=== PATIENT | female | born 1980 ===

== ENCOUNTER 2017-06-10 10:28 | Emergency (ER) | payer OTHER ==
[2017-06-10 10:28] VITALS: BMI 21.9
[2017-06-10 10:42] VITALS: BP 100/70; PULSE 92; RESP 20; TEMP 97.8; O2SAT 98
[2017-06-10] MEDS ORDERED: Lidocaine 2% w Epi 1:100,000 Inj IJ ONE (11:17)
--- NOTE | 2017-06-10 11:55 | C.PDOC ---
History Of Present Illness 36 yr old female presents to the ER with complaints of painful lump to the right labia for the past 2 days. Patient reports similar symptoms few months ago and was diagnosed with Bartholin cyst and had it drained in the ER. Patient denies fever, nausea, vomiting, abdominal pain, diarrhea, dysuria, incontinence , vaginal bleeding, vaginal discharge or back pain. Time Seen by Provider: 06/10/17 11:01 Chief Complaint (Nursing): Female Genitourinary History Per: Patient History/Exam Limitations: no limitations Onset/Duration Of Symptoms: Days (2) Current Symptoms Are (Timing): Still Present Past Medical History Reviewed: Historical Data, Nursing Documentation, Vital Signs Vital Signs: Last Vital Signs Temp 97.8 F 06/10/17 10:38 Pulse 92 H 06/10/17 10:38 Resp 20 06/10/17 10:38 BP 100/70 06/10/17 10:38 Pulse Ox 98 06/10/17 12:25 - Medical History PMH: Asthma Family History: States: No Known Family Hx - Social History Hx Tobacco Use: No Hx Alcohol Use: No Hx Substance Use: No - Immunization History Hx Tetanus Toxoid Vaccination: No Hx Influenza Vaccination: No Hx Pneumococcal Vaccination: No Review Of Systems Except As Marked, All Systems Reviewed And Found Negative. Constitutional: Negative for: Fever Gastrointestinal: Negative for: Nausea, Vomiting, Abdominal Pain, Diarrhea Genitourinary: Positive for: Other ((+) Painful lump to the right labia. ). Negative for: Dysuria, Incontinence, Vaginal Discharge, Vaginal Bleeding Musculoskeletal: Negative for: Back Pain Physical Exam - Physical Exam Appears: Non-toxic, No Acute Distress Skin: Warm, Dry, No Rash Head: Atraumatic, Normacephalic Eye(s): bilateral: Normal Inspection Oral Mucosa: Moist Neck: Normal ROM Cardiovascular: Rhythm Regular Respiratory: Normal Breath Sounds Gastrointestinal/Abdominal: Normal Exam, Soft, No Tenderness, No Guarding, No Rebound Pelvic: No Vaginal Bleeding, Other ((+) 3cm swollen and tender Bartholin Cyst to the right side of the labia. ) Extremity: Normal ROM, No Swelling Neurological/Psych: Oriented x3, Normal Speech, Normal Motor Gait: Steady ED Course And Treatment O2 Sat by Pulse Oximetry: 98 (on RA) Pulse Ox Interpretation: Normal - Incision & Drainage Of Abscess Anesthesia: Lidocaine 1%, With Epi Prep Used: Sterile Water, Betadine Procedure: Incised W/Scalpel Blade#:, Drained Pus, Irrigated Cavity W/Saline, Probed To Break Up Loculations (Word catheter was placed) Disposition - Disposition Referrals: Ramesh Espana [Staff Provider] - Disposition: HOME/ ROUTINE Disposition Time: 11:54 Condition: GOOD Additional Instructions: wash the area with soap and water like normal. The word catheter stays in until you to see the OBGYN. Follow up with the OBGYN within 2-3 days without fail. Return if worsened. Prescriptions: Cephalexin [cephalexin] 500 mg PO TID #30 cap Instructions: Bartholin Cyst (GEN) Print Language: DIVEHI - Clinical Impression Clinical Impression: Bartholin's gland abscess - PA / RECORDER OF DEEDS / Resident Statement MD/DO has reviewed & agrees with the documentation as recorded. - Scribe Statement The provider has reviewed the documentation as recorded by the Scribe Yue Veloz All medical record entries made by the Scribe were at my direction and personally dictated by me. I have reviewed the chart and agree that the record accurately reflects my personal performance of the history, physical exam, medical decision making, and the department course for this patient. I have also personally directed, reviewed, and agree with the discharge instructions and disposition.
[2017-06-10] MEDS ORDERED: Lidocaine 2% Inj (20ml) IV ONE (12:05)
== END 2017-06-10 12:04 | disposition home or self-care (01) ==
LOC: C.ER 10:28
DX: N75.1 Abscess of Bartholin's gland (principal)

== ENCOUNTER 2017-09-04 12:06 | Inpatient (IN) | payer MEDICAID, OTHER ==
[2017-09-04] MEDS ORDERED: Penicillin G 5 Million Unit Vial IVPB ONE (12:56)
[2017-09-04] MEDS ORDERED: Lactated Ringer's 1,000 ML IV SCH (13:00)
--- NOTE | 2017-09-04 13:10 | OBHP ---
Datetime: 09/04/2017 12:50 IP Adm Impression: Term, intrauterine ; Ruptured Membranes IP Admit Plan: Admit to unit Admit Comment, IP Provider: chief complaint-leaking of fluid since 3 am HPI 36 y/o at 37 wga here with c/o leaking of fluid on_off since 3 am.Denies vaginal bleeidng .Reports feeling some contractions.Denies any buring vulvar pain or dysuria, burning urination, pain with defecation course -AMA; GDMA1 ; Hx of herpetic outbreak during .patient on valtrex for supp ressive therapy since the outbreak PMH asthma PSH denies OBGYN HX Social hx denes tobacco,alcohol or illicit drug use Exam see exam section Plevic exam vulva no lesions; labia with no ulcers or induration or masses Vagina no ulcers; no pooling; nitrazine and ferning positive cervixft FHT 170s, mod rosalva [place] irregular ctx A/P 36 y/o at 37 wga with PROM.Hx of gestational diabetes and genital herpes.patient denies a ny symptoms of genital herpes.clinically no lesions seen on vulva, vagina and cervix.FHT with t achycardia -admit -iv fluid bolus -monitor fht closely Pelvic Type - PN: Adequate Extremities - PN: Normal Abdomen - PN: Normal Back - PN: Normal Lungs - PN: Normal Heart - PN: Normal Neurologic - PN: Normal General - PN: Normal Weight - Estimated: 3200 Presentation-Admit: Vertex FHR - Baseline A Provider: 170s Membranes, Provider: Ruptured Contraction Comments Provider: irregular Gestation - Est Wks by US: 37.0 Pool Provider: Negative Nitrazine Provider: Positive Ferning Provider: Positive IP Hx Assessment: The History has been Reviewed and is Current EGA AdmitDate IP: 37.0 Vital Signs Provider: Reviewed IP Chief Complaint: Suspected ruptured membranes NICHD Variability Prov Fetus A: Moderate 6-25bpm NICHD Decel Fetus A IP Provider: None Dilatation, Provider: ft Effacement, Provider: 70 Station, Provider: -2
[2017-09-04 13:36] LABS: BASO # 0.1 K/uL (0.0-0.2); BASO % 0.7 % (0.0-2.0); EOS % 0.2 % (0.0-4.0); HEMATOCRIT 45.1 % (34.0-47.0); LYMPH # 3.3 K/uL (1.0-4.3); LYMPH % 25.5 % (20.0-40.0); MEAN CELL VOLUME 86.1 fL (81.0-99.0); MEAN CORPUSCULAR HEMOGLOBIN 29.9 pg (27.0-31.0); MEAN CORPUSCULAR HGB CONC 34.8 g/dL (33.0-37.0); MEAN PLATELET VOLUME 10.2 fL (7.2-11.7); MONO # 1.1 K/uL (0.0-0.8); MONO % 8.5 % (0.0-10.0); RED CELL DISTRIBUTION WIDTH 13.9 % (11.5-14.5); WHITE BLOOD COUNT 12.8 K/uL (4.8-10.8)
[2017-09-04 13:42] LABS: CHLORIDE 104 mmol/L (98-107)
[2017-09-04 13:43] LABS: POTASSIUM 4.2 mmol/L (3.6-5.2); SODIUM 136 mmol/L (132-148)
[2017-09-04 13:45] LABS: ALB/GLOB RATIO 0.8 (1.0-2.1); AST/SGOT 25 U/L (14-36); BILIRUBIN,TOTAL 0.4 mg/dL (0.2-1.3); BLOOD UREA NITROGEN 8 mg/dL (7-17); CARBON DIOXIDE 21 mmol/L (22-30); GFR AFRICAN-AMERICAN > 60
[2017-09-04 13:46] LABS: ALKALINE PHOSPHATASE 149 U/L (38-126); ALT/SGPT 29 U/L (9-52); CALCIUM 9.5 mg/dl (8.6-10.4); GLUCOSE,RANDOM 73 mg/dL (65-105)
[2017-09-04 13:50] LABS: RBC URINE 6 /hpf (0-3); URINE BACTERIA RARE (<OCC); URINE BILIRUBIN NEGATIVE (NEGATIVE); URINE BLOOD 1+ (NEGATIVE); URINE COLOR Straw (YELLOW); URINE GLUCOSE (UA) NORMAL (Normal); URINE KETONE NEGATIVE (NEGATIVE); URINE LEUKOCYTE ESTERASE 3+ Leu/uL (Negative); URINE PROTEIN NEGATIVE (NEGATIVE); URINE UROBILINOGEN NORMAL mg/dL (0.2-1.0); WBC URINE 36 /hpf (0-5)
[2017-09-04] MEDS ORDERED: Oxytocin 20 units in LR 2,000 ML IV ONE (14:59)
[2017-09-04] MEDS ORDERED: cefOXitin IV 2 gm in Dextrose 2 GM/50 ML BAG IVPB ONE ×2 (14:59→15:00)
[2017-09-04] MEDS ORDERED: Sodium Citrate/Citric Acid 15 ml Sol ONE (14:59)
[2017-09-04] MEDS ORDERED: Sodium Citrate/Citric Acid 15 ml Sol PO ONE (15:00)
--- NOTE | 2017-09-04 15:03 | OBPN ---
Datetime: 09/04/2017 14:58 IP Progress Note Comment: S-patient denies any complaints_ Temp 99.2f fht 180s, MIN-MOD CAROL, NO Decels [place] irregular cts sve fingertip A/P Patient with persistent tachycardia.initially improve dwitnfluids but now again in 180s and with min variability.patient remote from delivery Sissy Alonso RN translating -discussed findings with patient and family.recommend csection due to nonreassuring tracing -patient voiecs udneratdning the clinical scenario and desires to proceed d-infoemed cosnent obatiend and signed.prior to signing the consent patient was given ample time t o ask questions.all questions answered Datetime: 09/04/2017 12:50 Pool Provider: Negative Nitrazine Provider: Positive Ferning Provider: Positive Membranes, Provider: Ruptured Contraction Comments Provider: irregular FHR - Baseline A Provider: 170s Gestation - Est Wks by US: 37.0 Weight - Estimated: 3200 Presentation-Admit: Vertex Vital Signs Provider: Reviewed NICHD Variability Prov Fetus A: Moderate 6-25bpm Dilatation, Provider: ft Effacement, Provider: 70 Station, Provider: -2 NICHD Decel Fetus A IP Provider: None
[2017-09-04] MEDS ORDERED: Morphine 1 mg/ml preservative-free Inj(Duramorph) ONE (15:18)
[2017-09-04] MEDS ORDERED: DiphenhydrAMINE 50 mg/ml Inj IVP PRN (15:55)
--- NOTE | 2017-09-04 22:04 | OBDS ---
DELIVERY PERSONNEL Delivery Doctor: Dylon Zimmerman MD Scrub Nurse: Yojana Dominguez OBT Tram Inspector: Golden Goff RN Anesthesiologist: DR TRIMBLE Dry Boss: donell trimble supplier quality specialist Resident: DR VILLA MATERNAL INFORMATION Delivery Anesthesia: Spinal Estimated Blood Loss (ml): 700 Provider Comments: primary csection done for nonreasuirng tracing LABOR SUMMARY EDC: 09/25/2017 00:00 No. Babies in Womb: 1 Attempted: No Labor Anesthesia: Intrathecal LABOR INFORMATION Group B Beta Strep: Positive Steroids Given: None Reason Steroids Not Administered: Not Applicable MEMBRANES Membranes Rupture Method: Spontaneous Rupture of Membranes: 09/04/2017 03:00 Length of Rupture (hrs): 12.78 Amniotic Fluid Color: Clear Amniotic Fluid Amount: Moderate Amniotic Fluid Odor: Normal STAGES OF LABOR Stage 3 hrs: 0 Stage 3 min: 1 CSECTION DELIVERY Primary Indication: Nonreassuring Status CSection Urgency: Emergency CSection Incidence: Primary Labor: Labor Elective: N/A Uterine Closure: Double-layer closure BABY A INFORMATION Delivery Date/Time: 09/04/2017 15:47 Method of Delivery: Born in Route : No : N/A Forceps: N/A Vacuum Extraction: N/A Shoulder Dystocia : Yes SHOULDER DYSTOCIA BABY A Delivery Date/Time: 09/04/2017 15:47 PRESENTATION/POSITION BABY A Presentation: Cephalic Cephalic Presentation: Vertex Breech Presentation: N/A PLACENTA INFORMATION BABY A Placenta Delivery Time : 09/04/2017 15:48 Placenta Method of Delivery: Manual Removal Placenta Status: Delivered SCORES BABY A Heart Rate 1 min: >100 bpm Resp Effort 1 min: Good Cry Reflex Irritability 1 min: Cough or Sneeze or Pulls Away Muscle Tone 1 min: Active Motion Color 1 min: Body [place], Extremities Blue SCORE 1 MIN: 9 Heart Rate 5 min: >100 bpm Resp Effort 5 min: Good Cry Reflex Irritability 5 min: Cough or Sneeze or Pulls Away Muscle Tone 5 min: Active Motion Color 5 min: Body [place], Extremities Blue SCORE 5 MIN: 9 INFANT INFORMATION BABY A Gestational Age at Delivery: 37.0 Gestational Status: Term Outcome : Liveborn Infant Condition : Stable Sex: Female IDENTIFICATION/MEDS BABY A ID Band Number: [id number] ID Band Location: Left Leg; Left Arm Sensor Applied: Yes Sensor Number: [id number] Sensor Location : Cord Clamp Vitamin K Given : Aquamephyton 1 mg IM; Right Thigh Erythromycin Given: Given Both Eyes WEIGHT/LENGTH BABY A Infant Birthweight (gms): 2535 Weight (lb): 5 Infant Weight (oz): 9 Length Inches: 18.50 Infant Length cms: 47.0 CORD INFORMATION BABY A No. Cord Vessels: 3 Nuchal Cord : N/A Cord Blood Taken: Yes Infant Suction: Mouth; Nose ASSESSMENT BABY A Infant Complications: None Physical Findings at Delivery: Within Normal Limits Respirations: Appears Normal Vp Transportation/ALS Called : Yes Infant Care By: dr michelle Transferred To: Remains with Mother
[2017-09-05] MEDS: Simethicone 80 mg Chewtab PO SCH ×4 (01:37→17:50)
[2017-09-05 09:11] LABS: BASO # 0.1 K/uL (0.0-0.2); BASO % 0.5 % (0.0-2.0); EOS % 0.3 % (0.0-4.0); HEMATOCRIT 35.5 % (34.0-47.0); LYMPH # 2.7 K/uL (1.0-4.3); LYMPH % 19.7 % (20.0-40.0); MEAN CELL VOLUME 87.8 fL (81.0-99.0); MEAN CORPUSCULAR HEMOGLOBIN 30.2 pg (27.0-31.0); MEAN CORPUSCULAR HGB CONC 34.3 g/dL (33.0-37.0); MEAN PLATELET VOLUME 10.6 fL (7.2-11.7); MONO # 1.3 K/uL (0.0-0.8); MONO % 9.4 % (0.0-10.0); NRBC % 0.1 % (0.0-2.0); RED CELL DISTRIBUTION WIDTH 13.5 % (11.5-14.5); WHITE BLOOD COUNT 13.9 K/uL (4.8-10.8)
[2017-09-05] MEDS: Prenatal Multivit/Folic Acid/Iron Tab PO SCH (09:18)
[2017-09-05] MEDS: Oxycodone/Acetaminophen 5/325 mg Tab PO PRN (13:27)
--- NOTE | 2017-09-05 14:17 | OP ---
PROCEDURE DATE: 09/04/2017 PREOPERATIVE DIAGNOSES: 1. Nonreassuring heart rate tracing. 2. Term intrauterine . POSTOPERATIVE DIAGNOSES: 1. Nonreassuring heart rate tracing. 2. Term intrauterine . PROCEDURE PERFORMED: Primary low transverse section. SURGEON: Ivan Zimmerman MD WATER SYSTEMS DESIGNER: Aly Berry MD Please note that the procedure required a cardiovascular surgical tech to assist with the entering into the abdominal cavity, to assist with the dissection of the tissues and assist with the delivery of the and to assist with the closure of the abdominal wall. The cardiovascular surgical tech was present and scrubbed for the entire duration of the procedure. TYPE OF ANESTHESIA: Epidural, spinal. ANESTHESIOLOGIST: Dr. Isidro. COMPLICATIONS: None. FINDING: Viable female in vertex presentation with Apgars of 9 at one minute, 9 at five minutes. Normal uterus, tubes, and ovaries bilaterally. ESTIMATED BLOOD LOSS: 700 mL. SPECIMEN: Placenta and cord blood. PROCEDURE IN DETAIL: After informed consent was obtained, the patient was taken to the operating room where spinal anesthesia was administered by the anesthesia team. She was then placed in dorsal supine position with a leftward tilt. She was then prepped and draped in the usual sterile manner. The Gutierrez catheter was confirmed to be draining clear urine. A Pfannenstiel skin incision was then made with a scalpel and got down to the underlying layer of the fascia with the help of the Bovie. The fascia was then incised in the midline and incision was extended laterally with the Bovie as well. The superior aspect of fascial incision was then grasped with Venice clamp to elevate it and the underlying rectus muscle was dissected off. Attention was then turned to the inferior aspect of the fascial incision which in a similar fashion was grasped with Venice clamp to elevate it and the underlying rectus muscle was dissected off. The rectus muscle was then in the midline. The peritoneum was entered bluntly. The peritoneum was also bluntly stretched. The bladder blade was then inserted and the vesicouterine peritoneum identified. A transverse incision was made over the vesicouterine peritoneum with a help of a Metzenbaum scissors and this incision was extended laterally and bladder flap was created sharply. The low uterine segment was thereafter identified. A transverse incision was made over the low uterine segment with the help of a scalpel. The hysterotomy was bluntly stretched. The membranes were ruptured and the infant's head was then delivered atraumatically followed by the body and the shoulders. The cord was then clamed and cut while the nose and the mouth were suctioned. The infant was handed over to the waiting sleever. A segment of cord was taken for cord blood pH. Cord blood was collected and the placenta was then manually removed. The uterus was exteriorized and cleared off all clots and debris. The uterine incision was repaired with 0 Polysorb in a running locked fashion. A second layer of same suture was used to imbricate the first layer and also to obtain hemostasis. Bleeding was noted from the mid section of the repair and this was suture ligated using [id number] sutures of 0 Monocryl. Adequate hemostasis was noted from the uterine incision repair site. The uterus was returned to the patient's abdomen and the gutters were irrigated and suctioned. Adequate hemostasis was noted on the uterine incision repair site as well as on the bladder flap. The peritoneum was then closed with 2-0 Polysorb in a running fashion. The muscle layer was reapproximated with 2-0 Polysorb in a continuous manner. The fascia was closed with 0 Vicryl in running fashion. The subcutaneous tissue was reapproximated with 2-0 Polysorb in a continuous manner. The skin was then closed with wilmer. The sponge, lap, needle and instrument count was correct x3 as reported to me including correct count at the end of the procedure. The patient was thereafter cleaned and taken to the recovery room in stable condition. The patient tolerated the procedure well. Ivan Zimmerman MD
--- NOTE | 2017-09-05 22:28 | OBPPN ---
Datetime: 09/05/2017 08:15 PP Pain Prov: Within normal limits PP Nausea Prov: Denies PP Flatus Prov: No PP BM Prov: No PP Breasts Prov: Normal PP Heart Prov: Normal PP Lungs Prov: Normal PP Abdomen/Uterus Prov: Normal PP Lochia Prov: Normal PP Vulva/Perineum Prov: Normal PP CVA Tenderness Prov: Normal PP Extremities Prov: Normal PP C/S Incision Prov: Normal PP Progress Prov: Normal PP Impression Prov: Normal progression PP Plan Prov: Continue present management PP Progress Note Prov: Patient was seen and examined at beside in the AM. Patient states she only h as pain when she moved out of bed to chair. Patient denies current pain. Patient states she has not urinated on her own yet this morning as they just removed her spear catheter. Patient stated she vo mitted 2x yesterday but denies nausea or vomiting this morning. She denies fever, flatus, or a bowel movement. She states she would like to breast feed but is having difficulty as her nipples are inve rted. Objective: Awake, alert and oriented x3. Abdomen: distended, tender, incision dressing is dry and intact. Lower extremities are non swollen and non- tender. A/P: 37yo Female 1.) Advance diet 2.) Continue pain management 3.) Consult 4.) Encourage ambulation Case Discussed with Dr. Isaiah Tapai PGY-1 Attending Note: patient seen and evaluated with Resident. I agree with the above as documented. I agree with the assessment and plan. Vital Signs Provider PP: Reviewed; Within Normal Limits
[2017-09-06] MEDS: Simethicone 80 mg Chewtab PO SCH ×5 (00:54→21:19)
[2017-09-06] MEDS ORDERED: Influenza Vaccine 60 mcg/0.5 mL SYR (4YR UP) IM ONE (08:49)
[2017-09-06] MEDS: Prenatal Multivit/Folic Acid/Iron Tab PO SCH (09:04)
[2017-09-06] MEDS: Oxycodone/Acetaminophen 5/325 mg Tab PO PRN ×2 (09:05→17:02)
[2017-09-07 08:14] VITALS: O2SAT 97
[2017-09-07] MEDS: Prenatal Multivit/Folic Acid/Iron Tab PO SCH (10:45)
[2017-09-07] MEDS: Simethicone 80 mg Chewtab PO SCH ×2 (10:45→13:06)
--- NOTE | 2017-09-07 19:46 | OBPPN ---
Datetime: 09/07/2017 09:26 PP Pain Prov: Within normal limits PP Nausea Prov: Denies PP Flatus Prov: Yes PP BM Prov: Yes PP Heart Prov: Normal PP Lungs Prov: Normal PP Abdomen/Uterus Prov: Normal PP Lochia Prov: Normal PP Extremities Prov: Normal PP C/S Incision Prov: Normal PP Comments Phys Exam Prov: Abdomen: fundus is firm and below the umbilicus PP Impression Prov: Normal progression PP Plan Prov: Continue present management IP PP Procedures: None Vital Signs Provider PP: Reviewed; Within Normal Limits Datetime: 09/06/2017 08:08 PP Breasts Prov: Normal PP Vulva/Perineum Prov: Normal PP CVA Tenderness Prov: Normal PP Progress Prov: Normal PP Progress Note Prov: Patient was seen and examined at bedside in the AM. Patient states she did am bulate yesterday. She states her pain is 1-2/10. Patient is taking her pain medication. She denies f ever, nausea or vomiting. Patient states she is breast feeding and bottle feeding. Objective: Awake, alert, and oriented x3. Abdomen: tender, non-distended, incision is dry and inta ct. Lower extremities are swollen and non-tender. A/P: 36 yo s/p post op day 2 1.) Continue pain management 2.) Continue managment Saundra Tapia PGY-1. Pt was reviewed with REsident and I agree with above. Dr Ramesh Espana
--- NOTE | 2017-09-07 19:48 | OBPPN ---
Datetime: 09/07/2017 09:26 PP Progress Note Prov: Patient was seen and examined at bedside. Patient reports that she is doing w ell and that pain is well controlled. Patient reports that she is toleratig diet, ambulating, passing flatus, having bowel movement and with mild lochia. Patient denies chest pain, SOB, palpitations, fe dari, chills, nausea, vomiting. Patient is breast feeding and bottle feeding. VS: Temp: 99.7, BP: 126/85, HR: 99 Gen: AAOx3, NAD Cardio: Normal RRR, +S1, +S2 Pulm: CTA bilaterally Abdomen: Soft, appropriately soft and fundus is firm and below the umbilcus, C/D/I and wilmer in place Ext: No edema, cyanosis and clubbing. No calf tenderness A/P: 36 yo s/p primary due to non-reassuring tracing, POD#3 1. Stable, Afebrile 2. Pain well-controlled 3. Encourage hydration and ambulation 4. Encourage 5. Continue routine post- 6. Discharge plan: Pelvic rest 6 weeks, no heavy lifting for 6 weeks, OTC tylenol or motrin for pa in control. F/u in the clinic for incision check and staple removal 7. Plan d/w with attending Capri Ramirez DO, PGY-1 I reviewed this patient with Resident and agrees with the above. Dr Espana.
[2017-09-07 23:11] VITALS: BP 126/85; PULSE 99; RESP 20; TEMP 99.7
== END 2017-09-07 14:00 | disposition home or self-care (01) | DRG 371 ==
LOC: C.EROB 12:06 → C.4D 12:49 → C.4M 20:30
PROVIDERS: ADMIT Student in an Organized Health Care Education/Training Program; ATTEND Student in an Organized Health Care Education/Training Program
PROC: 10D00Z1 Extraction of Products of Conception, Low, Open Approach (ICD-10-PCS; principal; 2017-09-04)
DX: O76 Abnormality in fetal heart rate and rhythm complicating labor and delivery (principal); O42.02 Full-term premature rupture of membranes, onset of labor within 24 hours of rupture; Z3A.37 37 weeks gestation of pregnancy; Z37.0 Single live birth; O90.89 Other complications of the puerperium, not elsewhere classified; M79.89 Other specified soft tissue disorders

== ENCOUNTER 2017-09-16 13:10 | Emergency (ER) | payer MEDICAID ==
[2017-09-16 13:11] VITALS: BMI 21.9
[2017-09-16 13:23] VITALS: O2SAT 96
[2017-09-16] MEDS ORDERED: Lidocaine 5% Patch TD STA (13:42)
--- NOTE | 2017-09-16 13:42 | C.PDOC ---
History Of Present Illness 36yo female, status-post 12 days ago, presents to the ED for evaluation after she slipped and fell on stairs. Patient reports she was walking down the stairs and was carrying her baby in a car seat; patient slipped and fell, landed on her buttocks and slid down 2-3 steps. Patient denies neck or head injury; she denies any loss of consciousness, neck pain. She currently reports pain to her lumbar region radiating to her right buttock and right hip. Patient reports the pain as 8/10 and dull and throbbing in nature ; states she is able to bear weight and ambulate. Additionally, patient reports she has abdominal pain, described as throbbing and present near her site. She offers no other medical complaints. Time Seen by Provider: 09/16/17 13:32 Chief Complaint (Nursing): Abdominal Pain History Per: Patient History/Exam Limitations: no limitations Onset/Duration Of Symptoms: Mins Current Symptoms Are (Timing): Still Present Context: Other (fall) Past Medical History Reviewed: Historical Data, Nursing Documentation, Vital Signs Vital Signs: Last Vital Signs Temp 97.9 F 09/16/17 13:22 Pulse 72 09/16/17 13:22 Resp 18 09/16/17 13:22 BP 127/80 09/16/17 13:22 Pulse Ox 96 09/16/17 14:02 - Medical History PMH: Asthma Surgical History: (x 1) - [facility] Procedures EXTRACTION OF POC, LOW CERVICAL, OPEN APPROACH (09/04/17) Family History: States: No Known Family Hx, Unknown Family Hx - Social History Hx Tobacco Use: No Hx Alcohol Use: No Hx Substance Use: No - Immunization History Hx Tetanus Toxoid Vaccination: No Hx Influenza Vaccination: No Hx Pneumococcal Vaccination: No Review Of Systems Gastrointestinal: Positive for: Abdominal Pain Musculoskeletal: Positive for: Back Pain. Negative for: Neck Pain Neurological: Negative for: Headache Physical Exam - Physical Exam Appears: Non-toxic, Other (tearful upon examination) Head: Atraumatic, Normacephalic Eye(s): bilateral: Normal Inspection Ear(s): Bilateral: Normal Nose: Normal Neck: Normal ROM, No Midline Cervical Tenderness, Supple Back: Vertebral Tenderness (midline tenderness to lumbar region and coccxygeal area. no bruising or swelling noted.) Extremity: Other (normal gait) ED Course And Treatment O2 Sat by Pulse Oximetry: 96 (RA) Pulse Ox Interpretation: Normal Medical Decision Making Medical Decision Making: Impression: 36yo female with abdominal pain, back pain status post fall Plan: -- Motrin and Tylenol for pain -- Lidoderm patch Patient made aware of possible coccyx fracture from fall, no X Ray at this time , but will return if pain is persistent. Disposition Counseled Patient/Family Regarding: Diagnosis, Need For Followup, Rx Given - Disposition Disposition: HOME/ ROUTINE Disposition Time: 15:33 Condition: STABLE Prescriptions: Ibuprofen [Motrin] 600 mg PO TID #15 tab Instructions: Acute Low Back Pain (ED) Forms: Gen Discharge Inst Vietnamese, [employer] (Vietnamese) - POA Present On Arrival: None - Clinical Impression Clinical Impression: Fall, Lumbar pain - Scribe Statement The provider has reviewed the documentation as recorded by the Aniket Alexandre Provider Attestation All medical record entries made by the Augustoibvinay were at my direction and personally dictated by me. I have reviewed the chart and agree that the record accurately reflects my personal performance of the history, physical exam, medical decision making, and the department course for this patient. I have also personally directed, reviewed, and agree with the discharge instructions and disposition.
[2017-09-16] MEDS ORDERED: Lidocaine 5% Patch TD ONE (14:04)
[2017-09-16 15:35] VITALS: BP 108/74; PULSE 67; RESP 17; TEMP 98.7
== END 2017-09-16 15:49 | disposition home or self-care (01) ==
LOC: C.ER 13:10
DX: M54.5 Low back pain (principal); W10.8XXA Fall (on) (from) other stairs and steps, initial encounter; Y93.89 Activity, other specified; Y92.89 Other specified places as the place of occurrence of the external cause; Z98.890 Other specified postprocedural states

== ENCOUNTER 2019-01-26 11:58 | Emergency (ER) | payer OTHER ==
[2019-01-26 11:58] VITALS: BMI 21.1
[2019-01-26 12:17] VITALS: BP 126/80; PULSE 117; RESP 18; TEMP 97.9; O2SAT 98
--- NOTE | 2019-01-26 13:06 | C.PDOC ---
Time Seen by Provider: 01/26/19 12:24 Chief Complaint (Nursing): Cough, Cold, Congestion History Per: Patient Onset/Duration Of Symptoms: Days (about 2 weeks) Current Symptoms Are (Timing): Still Present Sick Contacts (Context): Family Member(s) Associated Symptoms: Sore Throat, Cough, Sputum, Nasal Congestion Severity: Moderate Additional History Per: Prior Records Past Medical History Reviewed: Historical Data, Nursing Documentation, Vital Signs Vital Signs: Last Vital Signs Temp 97.9 F 01/26/19 12:15 Pulse 117 H 01/26/19 12:15 Resp 18 01/26/19 12:15 BP 126/80 01/26/19 12:15 Pulse Ox 98 01/26/19 12:15 - Medical History PMH: Asthma Surgical History: (x 1) - [facility] Procedures EXTRACTION OF POC, LOW CERVICAL, OPEN APPROACH (09/04/17) Family History: States: Unknown Family Hx - Social History Hx Tobacco Use: No Hx Alcohol Use: No Hx Substance Use: No - Immunization History Hx Tetanus Toxoid Vaccination: No Hx Influenza Vaccination: No Hx Pneumococcal Vaccination: No Review Of Systems Except As Marked, All Systems Reviewed And Found Negative. Constitutional: Negative for: Fever, Weakness ENT: Positive for: Nose Congestion. Negative for: Ear Pain Respiratory: Positive for: Cough. Negative for: Shortness of Breath Gastrointestinal: Negative for: Vomiting, Abdominal Pain Musculoskeletal: Negative for: Neck Pain Skin: Negative for: Rash Neurological: Negative for: Weakness, Seizures, Altered Mental Status Physical Exam - Physical Exam Appears: Non-toxic, No Acute Distress Skin: Normal Color, Warm, Dry, No Rash Head: Atraumatic, Normacephalic Eye(s): bilateral: Normal Inspection, PERRL, EOMI Throat: Normal Neck: Normal ROM, Supple Cardiovascular: Rhythm Regular Respiratory: Normal Breath Sounds, No Accessory Muscle Use Gastrointestinal/Abdominal: Soft, No Tenderness Extremity: Normal ROM Neurological/Psych: Oriented x3, Normal Speech, Normal Motor, Normal Sensation ED Course And Treatment O2 Sat by Pulse Oximetry: 98 Pulse Ox Interpretation: Normal Disposition Counseled Patient/Family Regarding: Diagnosis, Need For Followup, Rx Given - Disposition Referrals: Gennaro Brown MD [Medical Doctor] - Disposition: HOME/ ROUTINE Disposition Time: 13:07 Condition: STABLE Additional Instructions: Follow up with your primary doctor for further evaluation and treatment. Return to the ER if you develops fever, shortness of breath, worsening of symptoms or if you have any other concerns. Prescriptions: Albuterol HFA [Ventolin HFA 90 mcg/actuation (8 g)] 2 puff IH Q4 PRN #1 unit PRN Reason: Cough And Congestion Promethazine/Dextromethorphan [Promethazine-Dm Syrup] 5 ml PO Q4 PRN #1 syrup PRN Reason: Cough And Congestion Instructions: Upper Respiratory Infection (ED) Forms: [employer] (Mosotho) Print Language: SYRIAC - Clinical Impression Clinical Impression: Upper respiratory infection
== END 2019-01-26 13:06 | disposition home or self-care (01) ==
LOC: C.ER 11:58
DX: J06.9 Acute upper respiratory infection, unspecified (principal)